=== PATIENT | female | born 1940 | race Caucasian/White ===

== ENCOUNTER 2016-11-29 22:19 | Inpatient (IN) | payer MEDICARE, OTHER ==
[~2016-11-29] VITALS: Ht 152.4 cm; Wt 71.8 kg
[~2016-11-29 22:19] MED LIST: ACET325T9 PO; DICL50TA2 PO; HYDR-2666 PO; LEFL20TA PO; LEVO150T5 PO; MELA3TAB PO; MULT1TAB52 PO; OMEP40CA5 PO; ONDA4TAB10 SL; SIMV40TA3 PO; TOCI400V IV; TRAM50TA PO; tylenol pm; vision formula
--- NOTE | 2016-11-29 23:54 | PHYS DOC ---
Past Medical History Past Medical History: Arthritis, High Cholesterol, Hypertension, Hypothyroid Additional Past Medical Histor: OSTEOPEROSIS, RA, CARPAL TUNNEL Past Surgical History: Knee Replacement, Other Additional Past Surgical Histo: BILA FOOT REPAIR, BILAT KNEE RPL, NECK FUSION, BILAT CARPAL TUNNEL RELEASE Alcohol Use: None Drug Use: None Adult General Chief Complaint Chief Complaint: ABDOMINAL PAIN HPI HPI Patient is a 76 year old female who presents with abdominal pain. Patient reports since eating breakfast she has been having a "cramping" lower abdominal pain that waxes and wanes. It is accompanied by nausea and vomiting. She does report having score small bowel movements this morning. No clear inciting or mitigating factors. She reports a similar episode one month ago that resolved spontaneously. She tried taking some Pepto-Bismol, but says this made it worse. No other acute complaints. Review of Systems Review of Systems Constitutional: Denies fever or chills Eyes: Denies change in visual acuity or eye pain HENT: Denies nasal congestion or sore throat Respiratory: Denies cough or shortness of breath Cardiovascular: Denies chest pain GI: Lower abdominal pain, nausea, vomiting. Denies bloody stools or diarrhea : Denies dysuria or hematuria Musculoskeletal: Denies back pain or joint pain Integument: Denies rash or skin lesions Neurologic: Denies headache, focal weakness or sensory changes Current Medications Current Medications Current Medications Medications (Trade) Dose Ordered Sig/Telly Start Time Stop Time Status Last Admin Dose Admin Info (Do NOT chart on this entry -- for MONITORING) 1 each PRN DAILY PRN 11/30/16 01:15 12/02/16 01:14 Iohexol (Omnipaque 300 Mg/ml) 60 ml 1X ONCE 11/30/16 01:00 11/30/16 01:01 DC 11/30/16 01:20 60 ML Morphine Sulfate 4 mg 1X ONCE 11/30/16 00:00 11/30/16 00:11 DC 11/30/16 00:15 4 MG Ondansetron HCl (Zofran) 4 mg 1X ONCE 11/30/16 00:00 11/30/16 00:11 DC 11/30/16 00:14 4 MG Sodium Chloride (Iv Sodium Chloride 0.9% 1000ml Bag) 1,000 ml @ 1,000 mls/hr Q1H 11/30/16 00:00 11/30/16 00:59 DC 11/30/16 00:00 1,000 MLS/HR Allergies Allergies Allergies Coded Allergies Type Severity Reaction Last Updated Verified oxaprozin Allergy Severe Anaphylaxis 02/26/15 No sulfamethazine Allergy Unknown 11/29/16 Yes prednisone Adverse Reaction Intermediate Anxiety 02/26/15 No Physical Exam Physical Exam Constitutional: Well developed, well nourished, no acute distress, non-toxic appearance HENT: Normocephalic, atraumatic, bilateral external ears normal Eyes: EOMI, conjunctiva normal, no discharge Neck: Normal range of motion, no stridor Cardiovascular: Heart rate normal, regular rhythm, murmur noted Lungs & Thorax: Bilateral breath sounds clear to auscultation Abdomen: Bowel sounds normal, soft, non-distended, generalized TTP without guarding or rebound, R inguinal hernia noted - firm, not able to reduce Skin: Warm, dry, no erythema, no rash Extremities: No obvious deformity, no edema Neurologic: Alert and oriented X 3, no gross deficits noted Current Patient Data Vital Signs Vital Signs Date Time Temp Pulse Resp B/P Pulse Ox O2 Delivery O2 Flow Rate FiO2 11/30/16 02:28 86 20 156/88 94 Room Air 11/29/16 23:33 98.2 98.2 Lab Values Laboratory Tests Test 11/29/16 22:42 11/29/16 22:50 Urine Collection Type Unknown Urine Color Yellow Urine Clarity Clear Urine pH 6.5 Urine Specific [place] 1.015 Urine Protein Negativemg/dL (NEG-TRACE) Urine Glucose (UA) Negativemg/dL (NEG) Urine Ketones (Stick) 40mg/dL (NEG) Urine Blood Negative (NEG) Urine Nitrite Negative (NEG) Urine Bilirubin Negative (NEG) Urine Urobilinogen Dipstick 0.2mg/dL (0.2 mg/dL) Urine Leukocyte Esterase Trace (NEG) Urine RBC Occ/HPF (0-2) Urine WBC 1-4/HPF (0-4) Urine Squamous Epithelial Cells Few/LPF Urine Bacteria Few/HPF (0-FEW) White Blood Count 5.2x10^3/uL (4.0-11.0) Red Blood Count 4.62x10^6/uL (3.50-5.40) Hemoglobin 14.5g/dL (12.0-15.5) Hematocrit 43.5% (36.0-47.0) Mean Corpuscular Volume 94fL (79-100) Mean Corpuscular Hemoglobin 31pg (25-35) Mean Corpuscular Hemoglobin Concent 33g/dL (31-37) Red Cell Distribution Width 13.4% (11.5-14.5) Platelet Count 173x10^3/uL (140-400) Neutrophils (%) (Auto) 76% (31-73) H Lymphocytes (%) (Auto) 13% (24-48) L Monocytes (%) (Auto) 6% (0-9) Eosinophils (%) (Auto) 5% (0-3) H Basophils (%) (Auto) 1% (0-3) Neutrophils # (Auto) 4.0x10^3uL (1.8-7.7) Lymphocytes # (Auto) 0.7x10^3/uL (1.0-4.8) L Monocytes # (Auto) 0.3x10^3/uL (0.0-1.1) Eosinophils # (Auto) 0.3x10^3/uL (0.0-0.7) Basophils # (Auto) 0.0x10^3/uL (0.0-0.2) Sodium Level 143mmol/L (136-145) Potassium Level 3.8mmol/L (3.5-5.1) Chloride Level 103mmol/L (98-107) Carbon Dioxide Level 28mmol/L (21-32) Anion Gap 12 (6-14) Blood Urea Nitrogen 21mg/dL (7-20) H Creatinine 1.0mg/dL (0.6-1.0) Estimated GFR (Cockcroft-Gault) 53.8 BUN/Creatinine Ratio 21 (6-20) H Glucose Level 113mg/dL (70-99) H Calcium Level 10.1mg/dL (8.5-10.1) Total Bilirubin 0.6mg/dL (0.2-1.0) Aspartate Amino Transferase (AST) 31U/L (15-37) Alanine Aminotransferase (ALT) 36U/L (14-59) Alkaline Phosphatase 49U/L (46-116) Total Protein 7.5g/dL (6.4-8.2) Albumin 4.2g/dL (3.4-5.0) Albumin/Globulin Ratio 1.3 (1.0-1.7) Lipase 79U/L (73-393) Laboratory Tests 11/29/16 22:50 Laboratory Tests 11/29/16 22:50 EKG EKG [] Radiology/Procedures Radiology/Procedures CT A/P: IMPRESSION 1. There is distal small bowel obstruction. Point of transition is in a small right inguinal hernia. 2. Large hiatus hernia. Contains a moderate amount of the stomach and segment of transverse colon. The stomach below the hemidiaphragm is distended. 3. Common bile duct and pancreatic duct are mildly dilated. No evidence of a distal obstructing process although this is not excluded. Course & Med Decision Making Course & Med Decision Making Pertinent Labs and Imaging studies reviewed. (See chart for details) Patient is 76-year-old female who presents with lower abdominal pain. Will obtain CT abdomen/pelvis, UA, labs to evaluate. IV fluids, pain medication, nausea medication ordered for relief of symptoms. Labs unremarkable. Imaging results as above. Discussed results with patient. I tried again to reduce her inguinal hernia, without success. I discussed with Dr. Valdivia; will place an NG tube in the ED, will not give antibiotics at this time. Discussed with Dr. Lewis, will admit under his care for further evaluation and treatment. Martin Disclaimer Dragon Disclaimer This electronic medical record was generated, in whole or in part, using a voice recognition dictation system. Departure Departure Impression: Primary Impression: Small bowel obstruction Disposition: ADMITTED INPATIENT Admitting Physician: Osmani Lewis Condition: STABLE Referrals: CHERYL LAMB MD (PCP) PARMINDER ROSE MD Nov 29, 2016 23:54
[2016-11-30] VITALS (13 sets, daily range): BP systolic 100–153; BP diastolic 64–87
[2016-11-30] MEDS ORDERED: IV NORMAL SALINE 1000ML BAG 1,000 ML IV SCH
[2016-11-30] MEDS ORDERED: ONDANSETRON PF 4 MG/2 ML VIAL. IV ONE
[2016-11-30 00:11] LABS: BASO % 1 % (0-3); EOS % 5 % (0-3); HEMATOCRIT 43.5 % (36.0-47.0); HEMOGLOBIN 14.5 g/dL (12.0-15.5); LYMPH # 0.7 x10^3/uL (1.0-4.8); LYMPH % 13 % (24-48); MEAN CORPUSCULAR HEMOGLOBIN 31 pg (25-35); MEAN CORPUSCULAR HGB CONC 33 g/dL (31-37); MEAN CORPUSCULAR VOLUME 94 fL (79-100); MONO % 6 % (0-9); NEUT % 76 % (31-73); PLATELET COUNT 173 x10^3/uL (140-400); RED BLOOD COUNT 4.62 x10^6/uL (3.50-5.40); RED CELL DISTRIBUTION WIDTH 13.4 % (11.5-14.5); WHITE BLOOD COUNT 5.2 x10^3/uL (4.0-11.0)
[2016-11-30 00:24] LABS: CALCIUM 10.1 mg/dL (8.5-10.1); GFR 53.8; POTASSIUM 3.8 mmol/L (3.5-5.1)
[2016-11-30 00:29] LABS: ALBUMIN 4.2 g/dL (3.4-5.0); ALBUMIN/GLOBULIN RATIO 1.3 (1.0-1.7); TOTAL BILIRUBIN 0.6 mg/dL (0.2-1.0); TOTAL PROTEIN 7.5 g/dL (6.4-8.2)
[2016-11-30 00:45] LABS: BILIRUBIN,URINE NEGATIVE (NEG); GLUCOSE,URINE NEGATIVE (NEG); NITRITE,URINE NEGATIVE (NEG); PH,URINE 6.5; PROTEIN,URINE NEGATIVE (NEG-TRACE); UROBILINOGEN,URINE 0.2 mg/dL (0.2 mg/dL)
[2016-11-30 00:56] LABS: BACTERIA,URINE FEW /HPF (0-FEW); RBC,URINE OCC /HPF (0-2); SQUAMOUS EPITHELIAL CELL,UR FEW /LPF
[2016-11-30] MEDS ORDERED: IOHEXOL 300 MG/ML 75 ML VIAL IV ONE (01:00)
[2016-11-30] MEDS ORDERED: CONTRAST GIVEN MC PRN (01:15)
--- NOTE | 2016-11-30 01:56 | RAD ---
PROCEDURE CT abdomen pelvis with contrast. HISTORY Lower abdominal pain tonight. Nausea and vomiting. TECHNIQUE Helical CT imaging of the abdomen and pelvis is performed after 60 cc Omnipaque 300 IV contrast. Oral contrast is not given. PQRS: One or more the following individualized dose reduction techniques were utilized for the study: 1. Automated exposure control. 2. Adjustment of the mA and/or kV according to patient size. 3. Use of iterative reconstruction technique. COMPARISON None. FINDINGS Atelectasis or scarring in the lower lobes, greater on the right. Coronary artery disease. Cardiac size upper limits of normal. There is a large hiatus hernia. The intra thoracic stomach is borderline thick walled. The hiatal hernia also contains a segment of transverse colon. The stomach below the hemidiaphragm is distended. Gallbladder not seen, may be surgically absent. Common bile duct is prominent but appears to taper distally. The pancreatic duct is dilated, for example coronal image 20. The liver, spleen, pancreas, adrenal glands, and kidneys are normal. Tortuous abdominal aorta. No aneurysm. There is distal small bowel obstruction. Point of transition is a right inguinal hernia. There is also a small amount of fluid in the hernia. Small bowel injuring the hernia is narrowed, coronal image 19. Small bowel proximal to the hernia is dilated and fluid-filled. No evidence of colitis. Urinary bladder is distended but otherwise normal. Uterus unremarkable. No significant pelvic free fluid. Bilateral L5 spondylolysis. There is grade 1 anterolisthesis of L5 on S1. There is reverse S shaped thoracolumbar scoliosis. There is degenerative spondylosis. Degenerative arthropathy of the hips, worse on the right. IMPRESSION 1. There is distal small bowel obstruction. Point of transition is in a small right inguinal hernia. 2. Large hiatus hernia. Contains a moderate amount of the stomach and segment of transverse colon. The stomach below the hemidiaphragm is distended. 3. Common bile duct and pancreatic duct are mildly dilated. No evidence of a distal obstructing process although this is not excluded. Electronically signed by: Du Frances MD (Nov 30, 2016 01:54:57)
[2016-11-30] MEDS ORDERED: ONDANSETRON PF 4 MG/2 ML VIAL. IV PRN ×3 (03:00→08:15)
[2016-11-30] MEDS ORDERED: MORPHINE SULFATE 4 MG/ML DISP.SYRIN. IV PRN (03:00)
[2016-11-30] MEDS ORDERED: MORPHINE SULFATE 4 MG/ML DISP.SYRIN. IV ONE ×2 (03:00)
[2016-11-30] MEDS ORDERED: DIPH25CA58 PO (05:12)
[2016-11-30] MEDS ORDERED: POLY17PO5 PO (05:12)
[2016-11-30] MEDS ORDERED: FENTANYL PF 100 MCG/2 ML VIAL. IV PRN (06:15)
[2016-11-30] MEDS ORDERED: HYDROMORPHONE 2 MG/ML VIAL. IV PRN (06:15)
[2016-11-30] MEDS ORDERED: LIDOCAINE 1% 1 ML SYRINGE. ID PRN (06:15)
[2016-11-30] MEDS ORDERED: MORPHINE SULFATE 2 MG/ML DISP.SYRIN. IV PRN ×2 (06:15→08:15)
[2016-11-30] MEDS ORDERED: PROCHLORPERAZINE 10 MG/2 ML VIAL. IV PRN (06:15)
[2016-11-30] MEDS ORDERED: IV RINGERS,LACTATED 1000ML 1,000 ML IV SCH (06:15)
[2016-11-30] MEDS ORDERED: BUPIVAC MPF-EPI 0.5%-1:200000 30 ML VIAL. ONE (06:20)
[2016-11-30] MEDS ORDERED: FENTANYL PF 100 MCG/2 ML VIAL. ONE ×2 (06:24→07:27)
[2016-11-30] MEDS ORDERED: MIDAZOLAM HCL 2 MG/2 ML VIAL. ONE (06:24)
[2016-11-30] MEDS ORDERED: DESFLURANE 61 TO 120 MINUTES IH ONE (06:24)
[2016-11-30] MEDS ORDERED: GLYCOPYRROLATE 1 MG/5 ML VIAL. ONE ×2 (06:25→07:49)
[2016-11-30] MEDS ORDERED: PROPOFOL 20 ML IV ONE (06:25)
[2016-11-30] MEDS ORDERED: NEOSTIGMINE METHYLSULFATE 5 MG/5 ML SYRINGE. ONE ×2 (06:25→07:49)
[2016-11-30] MEDS ORDERED: DEXAMETHASONE SOD PHOS 20 MG/5 ML VIAL. ONE (06:25)
[2016-11-30] MEDS ORDERED: ROCURONIUM 50 MG/5 ML VIAL. ONE (06:25)
[2016-11-30] MEDS ORDERED: SUCCINYLCHOLINE 200 MG/10 ML VIAL. ONE (06:25)
[2016-11-30] MEDS ORDERED: LIDOCAINE 2% 100 MG/5 ML DISP.SYRIN. ONE (06:26)
[2016-11-30] MEDS ORDERED: CEFAZOLIN 2GM PREMIX 50 ML IV ONE ×2 (06:41→07:00)
[2016-11-30] MEDS ORDERED: SCOPOLAMINE 1.5MG PATCH. TD PRN (06:45)
--- NOTE | 2016-11-30 06:54 | PDOC ---
SURGICAL PROGRESS NOTE Subjective 76 yo F with incarcerated RIH TO OR for repair R/B/A d/w pt Thanks for consult! [id number] Vital Signs Vital Signs Date Time Temp Pulse Resp B/P Pulse Ox O2 Delivery O2 Flow Rate FiO2 11/30/16 05:54 18 Nasal Cannula 2.0 11/30/16 05:43 98.7 83 140/87 98 98.7 I&O Intake and Output 11/30/16 06:59 Intake Total 1000 ml Output Total 400 ml Balance 600 ml Intake IV Total 1000 ml Output Gastric Drainage Total 400 ml Labs Laboratory Tests Test 11/29/16 22:42 11/29/16 22:50 11/30/16 02:57 Urine Collection Type Unknown Urine Color Yellow Urine Clarity Clear Urine pH 6.5 Urine Specific [place] 1.015 Urine Protein Negativemg/dL (NEG-TRACE) Urine Glucose (UA) Negativemg/dL (NEG) Urine Ketones (Stick) 40mg/dL (NEG) Urine Blood Negative (NEG) Urine Nitrite Negative (NEG) Urine Bilirubin Negative (NEG) Urine Urobilinogen Dipstick 0.2mg/dL (0.2 mg/dL) Urine Leukocyte Esterase Trace (NEG) Urine RBC Occ/HPF (0-2) Urine WBC 1-4/HPF (0-4) Urine Squamous Epithelial Cells Few/LPF Urine Bacteria Few/HPF (0-FEW) White Blood Count 5.2x10^3/uL (4.0-11.0) Red Blood Count 4.62x10^6/uL (3.50-5.40) Hemoglobin 14.5g/dL (12.0-15.5) Hematocrit 43.5% (36.0-47.0) Mean Corpuscular Volume 94fL (79-100) Mean Corpuscular Hemoglobin 31pg (25-35) Mean Corpuscular Hemoglobin Concent 33g/dL (31-37) Red Cell Distribution Width 13.4% (11.5-14.5) Platelet Count 173x10^3/uL (140-400) Neutrophils (%) (Auto) 76% (31-73) Lymphocytes (%) (Auto) 13% (24-48) Monocytes (%) (Auto) 6% (0-9) Eosinophils (%) (Auto) 5% (0-3) Basophils (%) (Auto) 1% (0-3) Neutrophils # (Auto) 4.0x10^3uL (1.8-7.7) Lymphocytes # (Auto) 0.7x10^3/uL (1.0-4.8) Monocytes # (Auto) 0.3x10^3/uL (0.0-1.1) Eosinophils # (Auto) 0.3x10^3/uL (0.0-0.7) Basophils # (Auto) 0.0x10^3/uL (0.0-0.2) Sodium Level 143mmol/L (136-145) Potassium Level 3.8mmol/L (3.5-5.1) Chloride Level 103mmol/L (98-107) Carbon Dioxide Level 28mmol/L (21-32) Anion Gap 12 (6-14) Blood Urea Nitrogen 21mg/dL (7-20) Creatinine 1.0mg/dL (0.6-1.0) Estimated GFR (Cockcroft-Gault) 53.8 BUN/Creatinine Ratio 21 (6-20) Glucose Level 113mg/dL (70-99) Calcium Level 10.1mg/dL (8.5-10.1) Total Bilirubin 0.6mg/dL (0.2-1.0) Aspartate Amino Transf (AST/SGOT) 31U/L (15-37) Alanine Aminotransferase (ALT/SGPT) 36U/L (14-59) Alkaline Phosphatase 49U/L (46-116) Total Protein 7.5g/dL (6.4-8.2) Albumin 4.2g/dL (3.4-5.0) Albumin/Globulin Ratio 1.3 (1.0-1.7) Lipase 79U/L (73-393) Lactic Acid Level 0.7mmol/L (0.4-2.0) Laboratory Tests Test 11/29/16 22:42 11/29/16 22:50 11/30/16 02:57 Urine Collection Type Unknown Urine Color Yellow Urine Clarity Clear Urine pH 6.5 Urine Specific [place] 1.015 Urine Protein Negativemg/dL (NEG-TRACE) Urine Glucose (UA) Negativemg/dL (NEG) Urine Ketones (Stick) 40mg/dL (NEG) Urine Blood Negative (NEG) Urine Nitrite Negative (NEG) Urine Bilirubin Negative (NEG) Urine Urobilinogen Dipstick 0.2mg/dL (0.2 mg/dL) Urine Leukocyte Esterase Trace (NEG) Urine RBC Occ/HPF (0-2) Urine WBC 1-4/HPF (0-4) Urine Squamous Epithelial Cells Few/LPF Urine Bacteria Few/HPF (0-FEW) White Blood Count 5.2x10^3/uL (4.0-11.0) Red Blood Count 4.62x10^6/uL (3.50-5.40) Hemoglobin 14.5g/dL (12.0-15.5) Hematocrit 43.5% (36.0-47.0) Mean Corpuscular Volume 94fL (79-100) Mean Corpuscular Hemoglobin 31pg (25-35) Mean Corpuscular Hemoglobin Concent 33g/dL (31-37) Red Cell Distribution Width 13.4% (11.5-14.5) Platelet Count 173x10^3/uL (140-400) Neutrophils (%) (Auto) 76% (31-73) Lymphocytes (%) (Auto) 13% (24-48) Monocytes (%) (Auto) 6% (0-9) Eosinophils (%) (Auto) 5% (0-3) Basophils (%) (Auto) 1% (0-3) Neutrophils # (Auto) 4.0x10^3uL (1.8-7.7) Lymphocytes # (Auto) 0.7x10^3/uL (1.0-4.8) Monocytes # (Auto) 0.3x10^3/uL (0.0-1.1) Eosinophils # (Auto) 0.3x10^3/uL (0.0-0.7) Basophils # (Auto) 0.0x10^3/uL (0.0-0.2) Sodium Level 143mmol/L (136-145) Potassium Level 3.8mmol/L (3.5-5.1) Chloride Level 103mmol/L (98-107) Carbon Dioxide Level 28mmol/L (21-32) Anion Gap 12 (6-14) Blood Urea Nitrogen 21mg/dL (7-20) Creatinine 1.0mg/dL (0.6-1.0) Estimated GFR (Cockcroft-Gault) 53.8 BUN/Creatinine Ratio 21 (6-20) Glucose Level 113mg/dL (70-99) Calcium Level 10.1mg/dL (8.5-10.1) Total Bilirubin 0.6mg/dL (0.2-1.0) Aspartate Amino Transf (AST/SGOT) 31U/L (15-37) Alanine Aminotransferase (ALT/SGPT) 36U/L (14-59) Alkaline Phosphatase 49U/L (46-116) Total Protein 7.5g/dL (6.4-8.2) Albumin 4.2g/dL (3.4-5.0) Albumin/Globulin Ratio 1.3 (1.0-1.7) Lipase 79U/L (73-393) Lactic Acid Level 0.7mmol/L (0.4-2.0) Problem List Problems Medical Problems: (1) Small bowel obstruction Status: Acute Problems: ARINA DEWEY MD Nov 30, 2016 06:54
[2016-11-30] MEDS ORDERED: CEFAZOLIN 2GM PREMIX 50 ML IV SCH (07:00)
--- NOTE | 2016-11-30 07:17 | RAD ---
ANA, 11/30/2016: History: Check NG tube placement An AP view of the upper abdomen demonstrates an NG tube extending into the gastric fundus. There is only a small amount of gas in the GI tract. No organomegaly is seen. There is a moderate thoracolumbar scoliosis with multilevel degenerative change. IMPRESSION: The NG tube extends into the gastric fundus.
[2016-11-30] MEDS: IV RINGERS,LACTATED 1000ML 1,000 ML IV SCH (08:05)
--- NOTE | 2016-11-30 08:14 | PDOC ---
BRIEF OPERATIVE NOTE Pre-Op Diagnosis Incarcerated RIH, SBO Post-Op Diagnosis same Procedure Performed RIH repair with mesh Surgeon Skip Anesthesia Type: General, Local Blood Loss 10 IV Fluid 800 Specimens Obtained hernia sac Findings small RIH, compromised SB but brightens and appears viable pending alleviating obstruction Complications none Additional Remarks [id number] ARINA DEWEY MD Nov 30, 2016 08:14
[2016-11-30] MEDS ORDERED: 0.9 % SODIUM CHLORIDE 10 ML DISP.SYRIN. IV PRN (08:15)
[2016-11-30] MEDS: FENTANYL PF 100 MCG/2 ML VIAL. IV PRN ×2 (08:41→09:01)
[2016-11-30] MEDS: SENNOSIDES/DOCUSATE 8.6/50MG TABLET. PO SCH ×2 (09:00→20:52)
--- NOTE | 2016-11-30 11:45 | PDOC1 ---
History and Physical Date of Admission Date of Admission DATE: 11/30/16 TIME: 11:44 Identification/Chief Complaint Chief Complaint abd pain Source Source: Caregiver, Chart review History of Present Illness History of Present Illness Ms. Sheridan is a 76 year old female admit with acute and severe abdominal pain. cramping pain but severe, 8/10,. accompanied by nausea and vomiting. I have seen the pt post op, repair of incarcerated hernina, and she was asleep and pain improved, had prior pain 1 mo ago, acute onset and stopped suddenly Past Medical History Cardiovascular: HTN, Hyperlipidemia Rheumatologic: Rheumatoid arthritis Endocrine: Hypothyroidism Family History Family History: No Significant Social History Smoke: No ALCOHOL: none Current Problem List Problem List Problems Medical Problems: (1) Incarcerated right inguinal hernia Status: Acute (2) Small bowel obstruction Status: Acute Problems: Current Medications Current Medications Current Medications Sodium Chloride (Iv Sodium Chloride 0.9% 1000ml Bag) 1,000 ml @ 1,000 mls/hr Q1H IV Last administered on 11/30/16 00:00; Start 11/30/16 at 00:00; Stop at 00:59; Status DC Ondansetron HCl (Zofran) 4 mg 1X ONCE IV Last administered on 11/30/16 00:14 ; Start 11/30/16 at 00:00; Stop 11/30/16 at 00:11; Status DC Morphine Sulfate 4 mg 1X ONCE IV Last administered on 11/30/16 00:15; Start 11/30/16 at 00:00; Stop 11/30/16 at 00:11; Status DC Iohexol (Omnipaque 300 Mg/ml) 60 ml 1X ONCE IV Last administered on 11/30/16 01:20; Start 11/30/16 at 01:00; Stop 11/30/16 at 01:01; Status DC Info (Do NOT chart on this entry -- for MONITORING) 1 each PRN DAILY PRN MC SEE COMMENTS; Start 11/30/16 at 01:15; Stop 12/02/16 at 01:14 Morphine Sulfate 4 mg 1X ONCE IV Last administered on 11/30/16 02:50; Start 11/30/16 at 03:00; Stop 11/30/16 at 03:10; Status DC Ondansetron HCl (Zofran) 4 mg PRN Q8HRS PRN IV NAUSEA/VOMITING; Start 11/30/16 at 03:00; Stop 12/01/16 at 02:59 Morphine Sulfate 4 mg PRN Q2HR PRN IV PAIN Last administered on 11/30/16 05:19 ; Start 11/30/16 at 03:00; Stop 12/01/16 at 02:59 Ondansetron HCl (Zofran) 4 mg PRN Q6HRS PRN IV Nausea; Start 11/30/16 at 06:15 ; Stop 12/01/16 at 06:14 Fentanyl Citrate (Fentanyl 2ml Vial) 25 mcg PRN Q5MIN PRN IV MILD PAIN; Start 11/30/16 at 06:15; Stop 12/01/16 at 06:14 Fentanyl Citrate (Fentanyl 2ml Vial) 50 mcg PRN Q5MIN PRN IV MODERATE PAIN Last administered on 11/30/16 09:01; Start 11/30/16 at 06:15; Stop 12/01/16 at 06:14 Morphine Sulfate 1 mg 1 mg PRN Q10MIN PRN IV SEVERE PAIN; Start 11/30/16 at 06: 15; Stop 12/01/16 at 06:14 Lactated Ringer's (Iv Lactated Ringers) 1,000 ml @ 0 mls/hr Q0M IV ; Start at 06:15; Stop 11/30/16 at 06:25; Status DC Lidocaine HCl 2 ml 1X PRN PRN ID IV START; Start 11/30/16 at 06:15; Stop at 06:14 Hydromorphone HCl (Dilaudid) 0.5 mg PRN Q10MIN PRN IV SEV PAIN,Second choice; Start 11/30/16 at 06:15; Stop 12/01/16 at 06:14 Prochlorperazine Edisylate (Compazine) 5 mg PACU PRN PRN IV NAUSEA; Start 11/30 at 06:15; Stop 12/01/16 at 06:14 Bupivacaine HCl/ Epinephrine Bitart (Sensorcain-Mpf Epi 0.5%-1:[id number]) 30 ml GigaCreteK -MED ONCE .ROUTE Last administered on 11/30/16 07:53; Start 11/30/16 at 06:20 ; Stop 11/30/16 at 06:21; Status DC Desflurane (Suprane) 60 ml STK-MED ONCE IH ; Start 11/30/16 at 06:24; Stop 11/30 at 06:25; Status DC Midazolam HCl (Versed) 2 mg STK-MED ONCE .ROUTE ; Start 11/30/16 at 06:24; Stop 11/30/16 at 06:25; Status DC Fentanyl Citrate (Fentanyl 2ml Vial) 100 mcg STK-MED ONCE .ROUTE ; Start at 06:24; Stop 11/30/16 at 06:25; Status DC Succinylcholine Chloride (Anectine) 200 mg STK-MED ONCE .ROUTE ; Start 11/30/16 at 06:25; Stop 11/30/16 at 06:26; Status DC Glycopyrrolate (Robinul) 1 mg STK-MED ONCE .ROUTE ; Start 11/30/16 at 06:25; Stop 11/30/16 at 06:26; Status DC Neostigmine Methylsulfate 5 mg STK-MED ONCE .ROUTE ; Start 11/30/16 at 06:25; Stop 11/30/16 at 06:26; Status DC Rocuronium [place] 50 mg 50 mg STK-MED ONCE .ROUTE ; Start 11/30/16 at 06:25; Stop 11/30/16 at 06:26; Status DC Propofol (Diprivan) 20 ml @ As Directed STK-MED ONCE IV ; Start 11/30/16 at 06: 25; Stop 11/30/16 at 06:26; Status DC Dexamethasone Sodium Phosphate (Decadron) 20 mg STK-MED ONCE .ROUTE ; Start at 06:25; Stop 11/30/16 at 06:26; Status DC Lidocaine HCl 100 mg STK-MED ONCE .ROUTE ; Start 11/30/16 at 06:26; Stop at 06:27; Status DC Scopolamine 1 patch 1 patch PRN 1X PRN TD DIZZINESS Last administered on t 07:20; Start 11/30/16 at 06:45; Stop 11/30/16 at 13:00 Cefazolin Sodium/ Dextrose 50 ml @ As Directed STK-MED ONCE IV ; Start 11/30/16 at 06:41; Stop 11/30/16 at 06:42; Status DC Cefazolin Sodium/ Dextrose 50 ml @ 100 mls/hr 1X PREOP IV Last administered on 11/30/16t 07:21; Start 11/30/16 at 07:00; Stop 12/01/16 at 06:59 Cefazolin Sodium/ Dextrose (Ancef 2gm Premix) 50 ml @ 100 mls/hr 1X ONCE IV ; Start 11/30/16 at 07:00; Stop 11/30/16 at 07:29; Status DC Fentanyl Citrate (Fentanyl 2ml Vial) 100 mcg STK-MED ONCE .ROUTE ; Start at 07:27; Stop 11/30/16 at 07:28; Status DC Glycopyrrolate (Robinul) 1 mg STK-MED ONCE .ROUTE ; Start 11/30/16 at 07:49; Stop 11/30/16 at 07:50; Status DC Neostigmine Methylsulfate 5 mg STK-MED ONCE .ROUTE ; Start 11/30/16 at 07:49; Stop 11/30/16 at 07:50; Status DC Sodium Chloride 3 ml 3 ml QSHIFT PRN IV AFTER MEDS AND BLOOD DRAWS; Start 11/30 at 08:15 Lactated Ringer's (Iv Lactated Ringers) 1,000 ml @ 100 mls/hr Q10H IV ; Start 11/30/16 at 08:05 Acetaminophen/ Hydrocodone Bitart (Lortab 5/325) 1 tab PRN Q4HRS PRN PO MILD PAIN; Start 11/30/16 at 08:15 Morphine Sulfate 1 mg PRN Q1HR PRN IV PAIN; Start 11/30/16 at 08:15 Senna/Docusate Sodium (Senna Plus) 1 tab BID PO ; Start 11/30/16 at 09:00 Ondansetron HCl (Zofran) 4 mg PRN Q6HRS PRN IV NAUESA, 1ST CHOICE; Start at 08:15 Active Scripts Active Zofran Odt (Ondansetron) 4 Mg Tab.rapdis 1 Tab SL Q8HRS Reported Miralax (Polyethylene Glycol 3350) 17 Gm Powd.pack 1 Pkt PO DAILY Benadryl (Diphenhydramine Hcl) 25 Mg Capsule 1 Cap PO QHS Multivitamins (Multivitamin) 1 Each Tablet Unknown Dose PO DAILY Melatonin 3 Mg Tablet 1 Tab PO QHS [tylenol pm] Unknown Dose Tramadol Hcl 50 Mg Tablet 1 Tab PO PRN Q6HRS Tylenol (Acetaminophen) 325 Mg Tablet 1 Tab PO PRN Q4HRS Hydrocodone-Apap 5-325 (Hydrocodone Bit/Acetaminophen) 1 Each Tablet 1 Tab PO PRN Q6HRS PRN Diclofenac Potassium 50 Mg Tablet 1 Tab PO BID Omeprazole 40 Mg Capsule.dr Unknown Dose PO DAILY Simvastatin 40 Mg Tablet Unknown Dose PO QHS Levothyroxine Sodium 150 Mcg Tablet Unknown Dose PO DAILY [vision formula] Unknown Dose Actemra (Tocilizumab) 400 Mg/20 Ml Vial Unknown Dose IV Arava (Leflunomide) 20 Mg Tablet Unknown Dose PO DAILY Allergies Allergies: Coded Allergies: oxaprozin (Unverified Allergy, Severe, Anaphylaxis, 11/30/16) sulfamethazine (Verified Allergy, Intermediate, 11/30/16) prednisone (Unverified Adverse Reaction, Intermediate, Anxiety, 11/30/16) ROS General: YES: Fatigue, No: Appetite, Chills, Malaise, Night Sweats, Other PSYCHOLOGICAL ROS: No: Anxiety, Behavioral Disorder, Concentration difficultie , Decreased libido, Depression, Disorientation, Hallucinations, Hostility, Irritablity, Memory difficulties, Mood Swings, Obsessive thoughts, Other, Physical abuse, Sexual abuse, Sleep disturbances, Suicidal ideation Eyes: No Blurry vision, No Decreased vision, No Double vision, No Dry eyes, No Excessive tearing, No Eye Pain, No Itchy Eyes, No Loss of vision, No Other, No Photophobia, No Scotomata, No Uses contacts, No Uses glasses HEENT: No: Epistaxis, Heacaches, Hearing change, Nasal congestion, Nasal discharge, Oral lesions, Other, Sinus pain, Sneezing, Snoring, Sore Throat, Tinnitus, Vertigo, Visual Changes, Vocal changes Gastrointestinal: Yes Abdominal Pain, Yes Nausea Genitourinary: No , No , No , No , No , No , No , No Discharge, No Dysuria, No Flank Pain, No Frequency, No Hematuria, No Incontinence, No Other, No Pain, No Retention, No Urgency Musculoskeletal: Yes Joint Pain, Yes Joint Stiffness, No Gait Disturbance, No Joint Swelling, No Muscle Pain, No Muscular Weakness , No Other, No Pain In:, No Swelling In: Neurological: No Behavorial Changes, No Bowel/Bladder ControlChng, No Confusion , No Dizziness, No Gait Disturbance, No Headaches, No Impaired Coord/balance, No Memory Loss, No Numbness/Tingling, No Other, No Seizures, No Speech Problems , No Tremors, No Visual Changes, No Weakness Skin: No Acne, No Dry Skin, No Eczema, No Hair Changes, No Lumps, No Mole Changes, No Mottling, No Nail Changes, No Other, No Pruritus, No Rash, No Skin Lesion Changes Physical Exam General: Cooperative, No acute distress HEENT: EOMI Lungs: Clear to auscultation, Normal air movement Heart: S1S2, RRR Abdomen: Other (reported tender) Extremities: No edema, Normal pulses Psych/Mental Status: Other (lethargic, post-op, sleepy) Vitals Vitals Vital Signs Date Time Temp Pulse Resp B/P Pulse Ox O2 Delivery O2 Flow Rate FiO2 11/30/16 11:00 62 109/68 96 Nasal Cannula 2.0 11/30/16 09:15 96.4 18 96.4 Labs Labs Laboratory Tests Test 11/29/16 22:42 11/29/16 22:50 11/30/16 02:57 Urine Collection Type Unknown Urine Color Yellow Urine Clarity Clear Urine pH 6.5 Urine Specific [place] 1.015 Urine Protein Negativemg/dL (NEG-TRACE) Urine Glucose (UA) Negativemg/dL (NEG) Urine Ketones (Stick) 40mg/dL (NEG) Urine Blood Negative (NEG) Urine Nitrite Negative (NEG) Urine Bilirubin Negative (NEG) Urine Urobilinogen Dipstick 0.2mg/dL (0.2 mg/dL) Urine Leukocyte Esterase Trace (NEG) Urine RBC Occ/HPF (0-2) Urine WBC 1-4/HPF (0-4) Urine Squamous Epithelial Cells Few/LPF Urine Bacteria Few/HPF (0-FEW) White Blood Count 5.2x10^3/uL (4.0-11.0) Red Blood Count 4.62x10^6/uL (3.50-5.40) Hemoglobin 14.5g/dL (12.0-15.5) Hematocrit 43.5% (36.0-47.0) Mean Corpuscular Volume 94fL (79-100) Mean Corpuscular Hemoglobin 31pg (25-35) Mean Corpuscular Hemoglobin Concent 33g/dL (31-37) Red Cell Distribution Width 13.4% (11.5-14.5) Platelet Count 173x10^3/uL (140-400) Neutrophils (%) (Auto) 76% (31-73) Lymphocytes (%) (Auto) 13% (24-48) Monocytes (%) (Auto) 6% (0-9) Eosinophils (%) (Auto) 5% (0-3) Basophils (%) (Auto) 1% (0-3) Neutrophils # (Auto) 4.0x10^3uL (1.8-7.7) Lymphocytes # (Auto) 0.7x10^3/uL (1.0-4.8) Monocytes # (Auto) 0.3x10^3/uL (0.0-1.1) Eosinophils # (Auto) 0.3x10^3/uL (0.0-0.7) Basophils # (Auto) 0.0x10^3/uL (0.0-0.2) Sodium Level 143mmol/L (136-145) Potassium Level 3.8mmol/L (3.5-5.1) Chloride Level 103mmol/L (98-107) Carbon Dioxide Level 28mmol/L (21-32) Anion Gap 12 (6-14) Blood Urea Nitrogen 21mg/dL (7-20) Creatinine 1.0mg/dL (0.6-1.0) Estimated GFR (Cockcroft-Gault) 53.8 BUN/Creatinine Ratio 21 (6-20) Glucose Level 113mg/dL (70-99) Calcium Level 10.1mg/dL (8.5-10.1) Total Bilirubin 0.6mg/dL (0.2-1.0) Aspartate Amino Transf (AST/SGOT) 31U/L (15-37) Alanine Aminotransferase (ALT/SGPT) 36U/L (14-59) Alkaline Phosphatase 49U/L (46-116) Total Protein 7.5g/dL (6.4-8.2) Albumin 4.2g/dL (3.4-5.0) Albumin/Globulin Ratio 1.3 (1.0-1.7) Lipase 79U/L (73-393) Lactic Acid Level 0.7mmol/L (0.4-2.0) Laboratory Tests Test 11/29/16 22:42 11/29/16 22:50 11/30/16 02:57 Urine Collection Type Unknown Urine Color Yellow Urine Clarity Clear Urine pH 6.5 Urine Specific [place] 1.015 Urine Protein Negativemg/dL (NEG-TRACE) Urine Glucose (UA) Negativemg/dL (NEG) Urine Ketones (Stick) 40mg/dL (NEG) Urine Blood Negative (NEG) Urine Nitrite Negative (NEG) Urine Bilirubin Negative (NEG) Urine Urobilinogen Dipstick 0.2mg/dL (0.2 mg/dL) Urine Leukocyte Esterase Trace (NEG) Urine RBC Occ/HPF (0-2) Urine WBC 1-4/HPF (0-4) Urine Squamous Epithelial Cells Few/LPF Urine Bacteria Few/HPF (0-FEW) White Blood Count 5.2x10^3/uL (4.0-11.0) Red Blood Count 4.62x10^6/uL (3.50-5.40) Hemoglobin 14.5g/dL (12.0-15.5) Hematocrit 43.5% (36.0-47.0) Mean Corpuscular Volume 94fL (79-100) Mean Corpuscular Hemoglobin 31pg (25-35) Mean Corpuscular Hemoglobin Concent 33g/dL (31-37) Red Cell Distribution Width 13.4% (11.5-14.5) Platelet Count 173x10^3/uL (140-400) Neutrophils (%) (Auto) 76% (31-73) Lymphocytes (%) (Auto) 13% (24-48) Monocytes (%) (Auto) 6% (0-9) Eosinophils (%) (Auto) 5% (0-3) Basophils (%) (Auto) 1% (0-3) Neutrophils # (Auto) 4.0x10^3uL (1.8-7.7) Lymphocytes # (Auto) 0.7x10^3/uL (1.0-4.8) Monocytes # (Auto) 0.3x10^3/uL (0.0-1.1) Eosinophils # (Auto) 0.3x10^3/uL (0.0-0.7) Basophils # (Auto) 0.0x10^3/uL (0.0-0.2) Sodium Level 143mmol/L (136-145) Potassium Level 3.8mmol/L (3.5-5.1) Chloride Level 103mmol/L (98-107) Carbon Dioxide Level 28mmol/L (21-32) Anion Gap 12 (6-14) Blood Urea Nitrogen 21mg/dL (7-20) Creatinine 1.0mg/dL (0.6-1.0) Estimated GFR (Cockcroft-Gault) 53.8 BUN/Creatinine Ratio 21 (6-20) Glucose Level 113mg/dL (70-99) Calcium Level 10.1mg/dL (8.5-10.1) Total Bilirubin 0.6mg/dL (0.2-1.0) Aspartate Amino Transf (AST/SGOT) 31U/L (15-37) Alanine Aminotransferase (ALT/SGPT) 36U/L (14-59) Alkaline Phosphatase 49U/L (46-116) Total Protein 7.5g/dL (6.4-8.2) Albumin 4.2g/dL (3.4-5.0) Albumin/Globulin Ratio 1.3 (1.0-1.7) Lipase 79U/L (73-393) Lactic Acid Level 0.7mmol/L (0.4-2.0) VTE Prophylaxis Ordered VTE Prophylaxis Devices: Yes VTE Pharmacological Prophylaxi: No Assessment/Plan Assessment/Plan Acute abdominal pain incarcerated hernia, taken to OR urgently SBO, ng tube IV fluid IV pain meds s/p RIH repair w. mesh, gen surg following rheum arthrisits, Arava hypothyoid, 150 d htn, lipids obese, BMI 30.9 GERD, PPI labs in AM, cont LR 100 admit CIARAN SCHAEFER MD Nov 30, 2016 11:44
[2016-11-30] MEDS ORDERED: ONDANSETRON ODT 4 MG TAB.RAPDIS PO PRN (12:00)
[2016-11-30] MEDS ORDERED: HYDROCODONE/APAP 5/325MG TABLET. PO PRN (12:00)
[2016-11-30] MEDS ORDERED: ACETAMINOPHEN 325 MG TABLET. PO PRN (12:00)
[2016-11-30] MEDS: LEFLUNOMIDE 10 MG TABLET. PO SCH (12:30)
[2016-11-30] MEDS: PANTOPRAZOLE 40 MG TABLET. PO SCH (13:06)
[2016-11-30] MEDS: LEVOTHYROXINE 150 MCG TABLET PO SCH (13:06)
[2016-11-30] MEDS: POLYETHYLENE GLYCOL 3350 17 GM PACKET. PO SCH (13:06)
--- NOTE | 2016-11-30 15:40 | OP ---
DATE OF SURGERY: 11/30/2016 REFERRING PHYSICIANS: Dr. Lewis, ____ and Dr. Cheryl Rosario. Thank you for the consult. PREOPERATIVE DIAGNOSIS: Incarcerated right inguinal hernia with small-bowel obstruction. POSTOPERATIVE DIAGNOSES: Incarcerated right inguinal hernia with small-bowel obstruction. PROCEDURE PERFORMED: Right inguinal hernia repair with mesh. SURGEON: Zan Valdivia MD. ESTIMATED BLOOD LOSS: 10 mL. FLUIDS: 800. COMPLICATIONS: None. FINDINGS: Incarcerated very distal loop of small bowel, purplish in nature in the hernia, but brightens and appears to be completely viable pending alleviation of the obstruction. INDICATIONS: This is a 76-year-old female who presents with complaints of abdominal pain, nausea and vomiting. Imaging was concerning for small bowel obstruction secondary to incarcerated right inguinal hernia with loop of small bowel. Subsequently, it was felt patient best be served by right inguinal hernia repair with possible mesh, possible bowel resection. The patient was informed of the risks, benefits, alternatives to procedure, risks including but not limited to bleeding, infection, damage to the surrounding structures, risk of anesthesia, risk of hernia recurrence, risk of bowel resection. Patient appears to understand and her insightful questions were answered and she agrees to proceed. DESCRIPTION OF PROCEDURE: After obtaining informed consent, the patient was taken to the operating room, induced under general endotracheal anesthetic. The patient was prepped and draped in usual fashion in the right groin area. A transverse incision was made in the right groin area above the hernia. The hernia was palpable, but not reducible. Subcutaneous tissue was divided using electrocautery. The superficial pudendal vein was divided using electrocautery. The external oblique was identified in the direction of its fibers. It was opened longitudinally with electrocautery. The hernia was readily identifiable. The hernia sac was sharply opened using Metzenbaum scissors. Within the hernia sac was identified a loop of small intestine which was purplish in nature with very small tight opening and was not able to be reduced. As such the fascial defect was enlarged laterally using electrocautery very carefully not to injure the bowel. This allowed the bowel to be eviscerated. With the alleviation of the obstruction the bowel brightened very well, appeared to be pink and viable throughout. No evidence of stricture, obstruction or perforation. The bowel was returned to the abdominal cavity. The hernia sac was excised using electrocautery and sent to pathology for evaluation. The peritoneal defect was reapproximated using continuous 3-0 Vicryl stitch. Given that there was no obvious infection, it was felt patient best be served by mesh repair given her multiple comorbidities and likelihood of developing another hernia. A mesh plug was then placed, which was large and tacked in place using multiple interrupted 0 Vicryl stitches. Mesh [place] was placed over this and tacked in place using multiple interrupted 0 Vicryl stitches. The external oblique was tacked over this using continuous 3-0 Vicryl stitch, 0.5% Marcaine with epinephrine was injected in the surrounding tissues. Subcutaneous tissues reapproximated with 3-0 Vicryl. Skin incisions were approximated with 4-0 Monocryl in subcuticular fashion. Sterile dressing was placed over all wounds. The patient tolerated procedure well and was discharged to recovery room in stable condition. All counts correct. There were no immediate complications. CC: ____ ZAN VALDIVIA MD DR: SUJIT/luana JOB#: [id number] / [id number] CHERYL Ramos MD, SRINIVASA MD WILSON, KYLE MD
[2016-11-30] MEDS: DICLOFENAC SODIUM 25 MG TABLET.DR PO SCH (20:52)
[2016-11-30] MEDS: SIMVASTATIN 40 MG TABLET. PO SCH (20:52)
[2016-11-30] MEDS ORDERED: NON FORMULARY ITEM (Melatonin 1 TAB) PO SCH (21:00)
[2016-12-01] MEDS: HYDROCODONE/APAP 5/325MG TABLET. PO PRN ×4 (01:01→23:13)
[2016-12-01 02:40] VITALS: BP 111/71
[2016-12-01] MEDS: IV RINGERS,LACTATED 1000ML 1,000 ML IV SCH ×2 (04:05→16:32)
[2016-12-01 05:50] LABS: CALCIUM 8.8 mg/dL (8.5-10.1); CREATININE 0.8 mg/dL (0.6-1.0); GFR 69.6; POTASSIUM 3.4 mmol/L (3.5-5.1)
[2016-12-01 06:16] LABS: BASO % 0 % (0-3); EOS % 4 % (0-3); HEMATOCRIT 32.8 % (36.0-47.0); HEMOGLOBIN 11.2 g/dL (12.0-15.5); LYMPH # 1.2 x10^3/uL (1.0-4.8); LYMPH % 37 % (24-48); MEAN CORPUSCULAR HEMOGLOBIN 32 pg (25-35); MEAN CORPUSCULAR HGB CONC 34 g/dL (31-37); MEAN CORPUSCULAR VOLUME 93 fL (79-100); MONO % 17 % (0-9); NEUT % 42 % (31-73); PLATELET COUNT 134 x10^3/uL (140-400); RED BLOOD COUNT 3.52 x10^6/uL (3.50-5.40); RED CELL DISTRIBUTION WIDTH 13.3 % (11.5-14.5); WHITE BLOOD COUNT 3.3 x10^3/uL (4.0-11.0)
[2016-12-01 07:00] VITALS: BP 138/83
[2016-12-01] MEDS: LEVOTHYROXINE 150 MCG TABLET PO SCH (07:23)
--- NOTE | 2016-12-01 08:23 | PDOC ---
SURGICAL PROGRESS NOTE Subjective Pt without c/o, malcolm clears, no N/V with NGT clamped, KUB colonic air Vital Signs Vital Signs Date Time Temp Pulse Resp B/P Pulse Ox O2 Delivery O2 Flow Rate FiO2 12/01/16 07:00 99.5 72 18 138/83 94 Nasal Cannula 2.0 99.5 I&O Intake and Output 12/01/16 07:00 Intake Total 2350 ml Output Total 660 ml Balance 1690 ml Intake Oral 1100 ml IV Total 1250 ml Output Urine Total 650 ml Estimated Blood Loss 10 ml # Voids 3 General: Alert, Oriented X3, Cooperative, No acute distress Abdomen: Soft, No tenderness, Other (dressing c/d/i, some shadowing last night) Labs Laboratory Tests Test 11/29/16 22:42 11/29/16 22:50 11/30/16 02:57 12/01/16 04:20 Urine Collection Type Unknown Urine Color Yellow Urine Clarity Clear Urine pH 6.5 Urine Specific [place] 1.015 Urine Protein Negativemg/dL (NEG-TRACE) Urine Glucose (UA) Negativemg/dL (NEG) Urine Ketones (Stick) 40mg/dL (NEG) Urine Blood Negative (NEG) Urine Nitrite Negative (NEG) Urine Bilirubin Negative (NEG) Urine Urobilinogen Dipstick 0.2mg/dL (0.2 mg/dL) Urine Leukocyte Esterase Trace (NEG) Urine RBC Occ/HPF (0-2) Urine WBC 1-4/HPF (0-4) Urine Squamous Epithelial Cells Few/LPF Urine Bacteria Few/HPF (0-FEW) White Blood Count 5.2x10^3/uL (4.0-11.0) 3.3x10^3/uL (4.0-11.0) Red Blood Count 4.62x10^6/uL (3.50-5.40) 3.52x10^6/uL (3.50-5.40) Hemoglobin 14.5g/dL (12.0-15.5) 11.2g/dL (12.0-15.5) Hematocrit 43.5% (36.0-47.0) 32.8% (36.0-47.0) Mean Corpuscular Volume 94fL (79-100) 93fL (79-100) Mean Corpuscular Hemoglobin 31pg (25-35) 32pg (25-35) Mean Corpuscular Hemoglobin Concent 33g/dL (31-37) 34g/dL (31-37) Red Cell Distribution Width 13.4% (11.5-14.5) 13.3% (11.5-14.5) Platelet Count 173x10^3/uL (140-400) 134x10^3/uL (140-400) Neutrophils (%) (Auto) 76% (31-73) 42% (31-73) Lymphocytes (%) (Auto) 13% (24-48) 37% (24-48) Monocytes (%) (Auto) 6% (0-9) 17% (0-9) Eosinophils (%) (Auto) 5% (0-3) 4% (0-3) Basophils (%) (Auto) 1% (0-3) 0% (0-3) Neutrophils # (Auto) 4.0x10^3uL (1.8-7.7) 1.4x10^3uL (1.8-7.7) Lymphocytes # (Auto) 0.7x10^3/uL (1.0-4.8) 1.2x10^3/uL (1.0-4.8) Monocytes # (Auto) 0.3x10^3/uL (0.0-1.1) 0.6x10^3/uL (0.0-1.1) Eosinophils # (Auto) 0.3x10^3/uL (0.0-0.7) 0.1x10^3/uL (0.0-0.7) Basophils # (Auto) 0.0x10^3/uL (0.0-0.2) 0.0x10^3/uL (0.0-0.2) Sodium Level 143mmol/L (136-145) 140mmol/L (136-145) Potassium Level 3.8mmol/L (3.5-5.1) 3.4mmol/L (3.5-5.1) Chloride Level 103mmol/L (98-107) 106mmol/L (98-107) Carbon Dioxide Level 28mmol/L (21-32) 28mmol/L (21-32) Anion Gap 12 (6-14) 6 (6-14) Blood Urea Nitrogen 21mg/dL (7-20) 16mg/dL (7-20) Creatinine 1.0mg/dL (0.6-1.0) 0.8mg/dL (0.6-1.0) Estimated GFR (Cockcroft-Gault) 53.8 69.6 BUN/Creatinine Ratio 21 (6-20) Glucose Level 113mg/dL (70-99) 88mg/dL (70-99) Calcium Level 10.1mg/dL (8.5-10.1) 8.8mg/dL (8.5-10.1) Total Bilirubin 0.6mg/dL (0.2-1.0) Aspartate Amino Transf (AST/SGOT) 31U/L (15-37) Alanine Aminotransferase (ALT/SGPT) 36U/L (14-59) Alkaline Phosphatase 49U/L (46-116) Total Protein 7.5g/dL (6.4-8.2) Albumin 4.2g/dL (3.4-5.0) Albumin/Globulin Ratio 1.3 (1.0-1.7) Lipase 79U/L (73-393) Lactic Acid Level 0.7mmol/L (0.4-2.0) Laboratory Tests Test 12/01/16 04:20 White Blood Count 3.3x10^3/uL (4.0-11.0) Red Blood Count 3.52x10^6/uL (3.50-5.40) Hemoglobin 11.2g/dL (12.0-15.5) Hematocrit 32.8% (36.0-47.0) Mean Corpuscular Volume 93fL (79-100) Mean Corpuscular Hemoglobin 32pg (25-35) Mean Corpuscular Hemoglobin Concent 34g/dL (31-37) Red Cell Distribution Width 13.3% (11.5-14.5) Platelet Count 134x10^3/uL (140-400) Neutrophils (%) (Auto) 42% (31-73) Lymphocytes (%) (Auto) 37% (24-48) Monocytes (%) (Auto) 17% (0-9) Eosinophils (%) (Auto) 4% (0-3) Basophils (%) (Auto) 0% (0-3) Neutrophils # (Auto) 1.4x10^3uL (1.8-7.7) Lymphocytes # (Auto) 1.2x10^3/uL (1.0-4.8) Monocytes # (Auto) 0.6x10^3/uL (0.0-1.1) Eosinophils # (Auto) 0.1x10^3/uL (0.0-0.7) Basophils # (Auto) 0.0x10^3/uL (0.0-0.2) Sodium Level 140mmol/L (136-145) Potassium Level 3.4mmol/L (3.5-5.1) Chloride Level 106mmol/L (98-107) Carbon Dioxide Level 28mmol/L (21-32) Anion Gap 6 (6-14) Blood Urea Nitrogen 16mg/dL (7-20) Creatinine 0.8mg/dL (0.6-1.0) Estimated GFR (Cockcroft-Gault) 69.6 Glucose Level 88mg/dL (70-99) Calcium Level 8.8mg/dL (8.5-10.1) Problem List Problems Medical Problems: (1) Incarcerated right inguinal hernia Status: Acute (2) Small bowel obstruction Status: Acute Assessment/Plan s/p hernia repair d/c NGT ADAT Problems: ARINA DEWEY MD Dec 01, 2016 08:23
[2016-12-01] MEDS: DICLOFENAC SODIUM 25 MG TABLET.DR PO SCH ×2 (08:54→20:42)
[2016-12-01] MEDS: SENNOSIDES/DOCUSATE 8.6/50MG TABLET. PO SCH ×2 (08:54→20:42)
[2016-12-01] MEDS: LEFLUNOMIDE 10 MG TABLET. PO SCH (08:54)
[2016-12-01] MEDS: PANTOPRAZOLE 40 MG TABLET. PO SCH (08:54)
[2016-12-01] MEDS: POLYETHYLENE GLYCOL 3350 17 GM PACKET. PO SCH (08:55)
--- NOTE | 2016-12-01 09:15 | RAD ---
INDICATION: small bowel obstruction COMPARISON: CT from one day prior IMPRESSION: 2 views of chest and abdomen obtained. Enlarged cardiomediastinal silhouette is partially visualized chest base. A portion of this appearance is likely secondary the patient's known hiatal hernia. There is an enteric tube seen within left upper quadrant the abdomen. Could be within the patient's hiatal hernia sac. Linear opacity left lower lung could be atelectasis. Severe degenerative changes of spine with scoliotic curvature. Air-filled distended loops of bowel are again seen within the abdomen and could be from the patient's known bowel obstruction although a portion could also be from ileus as well given that a portion of the large bowel appears air-filled and prominent.
--- NOTE | 2016-12-01 10:31 | CONS ---
DATE OF CONSULTATION: 11/30/2016 REFERRING PHYSICIANS: Dr. Lewis, Dr. Fredi Bradley, Dr. Cheryl Rosario. Thank you for the consult. CHIEF COMPLAINT: Nausea and vomiting, right groin bulge. DIAGNOSIS: Incarcerated right inguinal hernia. PLANNED PROCEDURE: Right inguinal hernia repair, possibly with mesh, possible bowel resection. HISTORY OF PRESENT ILLNESS: This is a very pleasant 76-year-old female who reports having an episode of crampy abdominal pain with some associated nausea and vomiting beginning 2 days ago, gradually worsened to the point where she presented to the Emergency Room for evaluation. She was diagnosed with small bowel obstruction. NG tube was placed and she was admitted for IV fluid resuscitation, seen in the preoperative area. She reports feeling much better since admission with the NG tube placement, does still have the pain, especially in the right groin, is tolerable in spite of pain medicine. She does report a dry mouth. She denies fevers or chills. She reports a history of hiatal hernia which occurred for falling on some linens approximately 6 years ago. She notes intermittently feeling a kink that resolves with stretching. ALLERGIES: SHE HAS AN ALLERGY TO OXAPROZIN, SULFAMETHAZINE. MEDICATIONS: Including Tylenol, diclofenac, Benadryl, hydrocodone, Arava, levothyroxine, melatonin, multivitamin, omeprazole, Zofran, MiraLax, simvastatin, tramadol. PAST MEDICAL HISTORY: Rheumatoid arthritis, high cholesterol, hypertension, hypothyroidism, osteoporosis. PAST SURGICAL HISTORY: Carpal tunnel repair of bilateral wrists, knee replacements, multiple neck fusions. SOCIAL HISTORY: No tobacco, no significant alcohol use. FAMILY HISTORY: Positive for diabetes. REVIEW OF SYSTEMS: All systems reviewed and negative except for HPI. PHYSICAL EXAMINATION: GENERAL: Well-developed, mildly obese female in no obvious distress. She has an NG tube in place with clear aspirate. VITAL SIGNS: She is afebrile. Vital signs within normal limits. HEENT: Normocephalic, anicteric sclerae. Extraocular motions intact. Oropharynx clear. NECK: Supple. CHEST: Bilateral chest excursion. ABDOMEN: Soft, somewhat distended, nontender to palpation. She has a palpable mass in the right groin consistent with right inguinal hernia, does not appear to be reducible. She reports some mild tenderness to palpation with this. EXTREMITIES: She has significant evidence of rheumatoid arthritis, especially in her hands and her extremities. LABORATORY DATA: White blood cell count is 5.2. Chemistry is consistent with mild dehydration with BUN of 21 and creatinine 1.0. UA is unremarkable. CT scan of her abdomen and pelvis demonstrates atelectasis, large hiatal hernia with intrathoracic stomach, borderline thick-walled, with some transverse colon, gallbladder was not visualized, distal small bowel obstruction with point transition in the right inguinal hernia, small amount of fluid in the hernia, degenerative disk disease. IMPRESSION AND RECOMMENDATIONS: A 76-year-old female with small bowel obstruction secondary to incarcerated right inguinal hernia. We will plan on right inguinal hernia repair possibly with mesh, possible bowel resection today. The patient was informed of the risks, benefits and alternatives to procedure, risks including but not limited to bleeding, infection, damage to surrounding structures, risk of anesthesia, risk of hernia recurrence and possible bowel resection. The patient appears to understand, her insightful questions were answered and she agrees to proceed. The large hiatal hernia is discussed with her. She does not wish surgical intervention at this time. She recently undergone some immune therapy for rheumatoid arthritis and would be at high risk for large procedure. In addition, she reports that this is this not significantly symptomatic to her, but she may benefit from additional workup pending recovery from this surgery. In addition, her bile duct and pancreatic ducts are noted and she may benefit from followup pending recovery from the surgery. Thank you for allowing my participation in the care of this pleasant patient. ARINA DEWEY MD DR: SUJIT/luana JOB#: [id number] / [id number] CHERYL Ramos MD, SRINIVASA MD WILSON, KYLE MD MTDD
[2016-12-01 11:08] VITALS: BP 116/77
--- NOTE | 2016-12-01 12:18 | PDOC ---
PROGRESS NOTES Chief Complaint Chief Complaint incarcerated hernia s/p emergent sx (11/30) POD # 1 rheum arthritis on Arava hypothyoidism on synthroid htn, Dyslipidemia obese, BMI 30.9 History of Present Illness History of Present Illness Doing well post op in terms of pain level, mobility and tolerating clears Eager to go home soon Dw RN and pt GS notes reviewed PLAN: Possible GI soft tonight Cont ambulation and iS Post op site inspected, minimal bleeding Vitals Vitals Vital Signs Date Time Temp Pulse Resp B/P Pulse Ox O2 Delivery O2 Flow Rate FiO2 12/01/16 11:08 98.1 65 18 116/77 97 Nasal Cannula 2.0 98.1 Physical Exam General: Alert, Oriented X3, Cooperative, No acute distress Heart: Regular rate, Normal S1, Normal S2 Lungs: Clear Abdomen: Soft, No tenderness, Other (dressing c/d/i, some shadowing last night) Extremities: No clubbing, No cyanosis, No edema, Normal pulses Skin: No rashes, No breakdown Labs LABS Laboratory Tests Test 12/01/16 04:20 White Blood Count 3.3x10^3/uL (4.0-11.0) Red Blood Count 3.52x10^6/uL (3.50-5.40) Hemoglobin 11.2g/dL (12.0-15.5) Hematocrit 32.8% (36.0-47.0) Mean Corpuscular Volume 93fL (79-100) Mean Corpuscular Hemoglobin 32pg (25-35) Mean Corpuscular Hemoglobin Concent 34g/dL (31-37) Red Cell Distribution Width 13.3% (11.5-14.5) Platelet Count 134x10^3/uL (140-400) Neutrophils (%) (Auto) 42% (31-73) Lymphocytes (%) (Auto) 37% (24-48) Monocytes (%) (Auto) 17% (0-9) Eosinophils (%) (Auto) 4% (0-3) Basophils (%) (Auto) 0% (0-3) Neutrophils # (Auto) 1.4x10^3uL (1.8-7.7) Lymphocytes # (Auto) 1.2x10^3/uL (1.0-4.8) Monocytes # (Auto) 0.6x10^3/uL (0.0-1.1) Eosinophils # (Auto) 0.1x10^3/uL (0.0-0.7) Basophils # (Auto) 0.0x10^3/uL (0.0-0.2) Sodium Level 140mmol/L (136-145) Potassium Level 3.4mmol/L (3.5-5.1) Chloride Level 106mmol/L (98-107) Carbon Dioxide Level 28mmol/L (21-32) Anion Gap 6 (6-14) Blood Urea Nitrogen 16mg/dL (7-20) Creatinine 0.8mg/dL (0.6-1.0) Estimated GFR (Cockcroft-Gault) 69.6 Glucose Level 88mg/dL (70-99) Calcium Level 8.8mg/dL (8.5-10.1) Review of Systems Review of Systems no emesis, constipation, cp, soa Assessment and Plan Assessmemt and Plan Problems Medical Problems: (1) Incarcerated right inguinal hernia Status: Acute (2) Small bowel obstruction Status: Acute Problems: Comment Review of Relevant I have reviewed the following items mally (where applicable) has been applied. Labs Laboratory Tests Test 11/29/16 22:42 11/29/16 22:50 11/30/16 02:57 12/01/16 04:20 Urine Collection Type Unknown Urine Color Yellow Urine Clarity Clear Urine pH 6.5 Urine Specific [place] 1.015 Urine Protein Negativemg/dL (NEG-TRACE) Urine Glucose (UA) Negativemg/dL (NEG) Urine Ketones (Stick) 40mg/dL (NEG) Urine Blood Negative (NEG) Urine Nitrite Negative (NEG) Urine Bilirubin Negative (NEG) Urine Urobilinogen Dipstick 0.2mg/dL (0.2 mg/dL) Urine Leukocyte Esterase Trace (NEG) Urine RBC Occ/HPF (0-2) Urine WBC 1-4/HPF (0-4) Urine Squamous Epithelial Cells Few/LPF Urine Bacteria Few/HPF (0-FEW) White Blood Count 5.2x10^3/uL (4.0-11.0) 3.3x10^3/uL (4.0-11.0) Red Blood Count 4.62x10^6/uL (3.50-5.40) 3.52x10^6/uL (3.50-5.40) Hemoglobin 14.5g/dL (12.0-15.5) 11.2g/dL (12.0-15.5) Hematocrit 43.5% (36.0-47.0) 32.8% (36.0-47.0) Mean Corpuscular Volume 94fL (79-100) 93fL (79-100) Mean Corpuscular Hemoglobin 31pg (25-35) 32pg (25-35) Mean Corpuscular Hemoglobin Concent 33g/dL (31-37) 34g/dL (31-37) Red Cell Distribution Width 13.4% (11.5-14.5) 13.3% (11.5-14.5) Platelet Count 173x10^3/uL (140-400) 134x10^3/uL (140-400) Neutrophils (%) (Auto) 76% (31-73) 42% (31-73) Lymphocytes (%) (Auto) 13% (24-48) 37% (24-48) Monocytes (%) (Auto) 6% (0-9) 17% (0-9) Eosinophils (%) (Auto) 5% (0-3) 4% (0-3) Basophils (%) (Auto) 1% (0-3) 0% (0-3) Neutrophils # (Auto) 4.0x10^3uL (1.8-7.7) 1.4x10^3uL (1.8-7.7) Lymphocytes # (Auto) 0.7x10^3/uL (1.0-4.8) 1.2x10^3/uL (1.0-4.8) Monocytes # (Auto) 0.3x10^3/uL (0.0-1.1) 0.6x10^3/uL (0.0-1.1) Eosinophils # (Auto) 0.3x10^3/uL (0.0-0.7) 0.1x10^3/uL (0.0-0.7) Basophils # (Auto) 0.0x10^3/uL (0.0-0.2) 0.0x10^3/uL (0.0-0.2) Sodium Level 143mmol/L (136-145) 140mmol/L (136-145) Potassium Level 3.8mmol/L (3.5-5.1) 3.4mmol/L (3.5-5.1) Chloride Level 103mmol/L (98-107) 106mmol/L (98-107) Carbon Dioxide Level 28mmol/L (21-32) 28mmol/L (21-32) Anion Gap 12 (6-14) 6 (6-14) Blood Urea Nitrogen 21mg/dL (7-20) 16mg/dL (7-20) Creatinine 1.0mg/dL (0.6-1.0) 0.8mg/dL (0.6-1.0) Estimated GFR (Cockcroft-Gault) 53.8 69.6 BUN/Creatinine Ratio 21 (6-20) Glucose Level 113mg/dL (70-99) 88mg/dL (70-99) Calcium Level 10.1mg/dL (8.5-10.1) 8.8mg/dL (8.5-10.1) Total Bilirubin 0.6mg/dL (0.2-1.0) Aspartate Amino Transf (AST/SGOT) 31U/L (15-37) Alanine Aminotransferase (ALT/SGPT) 36U/L (14-59) Alkaline Phosphatase 49U/L (46-116) Total Protein 7.5g/dL (6.4-8.2) Albumin 4.2g/dL (3.4-5.0) Albumin/Globulin Ratio 1.3 (1.0-1.7) Lipase 79U/L (73-393) Lactic Acid Level 0.7mmol/L (0.4-2.0) Laboratory Tests Test 12/01/16 04:20 White Blood Count 3.3x10^3/uL (4.0-11.0) Red Blood Count 3.52x10^6/uL (3.50-5.40) Hemoglobin 11.2g/dL (12.0-15.5) Hematocrit 32.8% (36.0-47.0) Mean Corpuscular Volume 93fL (79-100) Mean Corpuscular Hemoglobin 32pg (25-35) Mean Corpuscular Hemoglobin Concent 34g/dL (31-37) Red Cell Distribution Width 13.3% (11.5-14.5) Platelet Count 134x10^3/uL (140-400) Neutrophils (%) (Auto) 42% (31-73) Lymphocytes (%) (Auto) 37% (24-48) Monocytes (%) (Auto) 17% (0-9) Eosinophils (%) (Auto) 4% (0-3) Basophils (%) (Auto) 0% (0-3) Neutrophils # (Auto) 1.4x10^3uL (1.8-7.7) Lymphocytes # (Auto) 1.2x10^3/uL (1.0-4.8) Monocytes # (Auto) 0.6x10^3/uL (0.0-1.1) Eosinophils # (Auto) 0.1x10^3/uL (0.0-0.7) Basophils # (Auto) 0.0x10^3/uL (0.0-0.2) Sodium Level 140mmol/L (136-145) Potassium Level 3.4mmol/L (3.5-5.1) Chloride Level 106mmol/L (98-107) Carbon Dioxide Level 28mmol/L (21-32) Anion Gap 6 (6-14) Blood Urea Nitrogen 16mg/dL (7-20) Creatinine 0.8mg/dL (0.6-1.0) Estimated GFR (Cockcroft-Gault) 69.6 Glucose Level 88mg/dL (70-99) Calcium Level 8.8mg/dL (8.5-10.1) Medications Current Medications Sodium Chloride (Iv Sodium Chloride 0.9% 1000ml Bag) 1,000 ml @ 1,000 mls/hr Q1H IV Last administered on 11/30/16 00:00; Start 11/30/16 at 00:00; Stop at 00:59; Status DC Ondansetron HCl (Zofran) 4 mg 1X ONCE IV Last administered on 11/30/16 00:14 ; Start 11/30/16 at 00:00; Stop 11/30/16 at 00:11; Status DC Morphine Sulfate 4 mg 1X ONCE IV Last administered on 11/30/16 00:15; Start 11/30/16 at 00:00; Stop 11/30/16 at 00:11; Status DC Iohexol (Omnipaque 300 Mg/ml) 60 ml 1X ONCE IV Last administered on 11/30/16 01:20; Start 11/30/16 at 01:00; Stop 11/30/16 at 01:01; Status DC Info (Do NOT chart on this entry -- for MONITORING) 1 each PRN DAILY PRN MC SEE COMMENTS; Start 11/30/16 at 01:15; Stop 12/02/16 at 01:14 Morphine Sulfate 4 mg 1X ONCE IV Last administered on 11/30/16 02:50; Start 11/30/16 at 03:00; Stop 11/30/16 at 03:10; Status DC Ondansetron HCl (Zofran) 4 mg PRN Q8HRS PRN IV NAUSEA/VOMITING; Start 11/30/16 at 03:00; Stop 12/01/16 at 02:59; Status DC Morphine Sulfate 4 mg PRN Q2HR PRN IV PAIN Last administered on 11/30/16 05:19 ; Start 11/30/16 at 03:00; Stop 12/01/16 at 02:59; Status DC Ondansetron HCl (Zofran) 4 mg PRN Q6HRS PRN IV Nausea; Start 11/30/16 at 06:15 ; Stop 12/01/16 at 06:14; Status DC Fentanyl Citrate (Fentanyl 2ml Vial) 25 mcg PRN Q5MIN PRN IV MILD PAIN; Start 11/30/16 at 06:15; Stop 12/01/16 at 06:14; Status DC Fentanyl Citrate (Fentanyl 2ml Vial) 50 mcg PRN Q5MIN PRN IV MODERATE PAIN Last administered on 11/30/16 09:01; Start 11/30/16 at 06:15; Stop 12/01/16 at 06:14; Status DC Morphine Sulfate 1 mg 1 mg PRN Q10MIN PRN IV SEVERE PAIN Last administered on 13:07; Start 11/30/16 at 06:15; Stop 12/01/16 at 06:14; Status DC Lactated Ringer's (Iv Lactated Ringers) 1,000 ml @ 0 mls/hr Q0M IV ; Start at 06:15; Stop 11/30/16 at 06:25; Status DC Lidocaine HCl 2 ml 1X PRN PRN ID IV START; Start 11/30/16 at 06:15; Stop at 06:14; Status DC Hydromorphone HCl (Dilaudid) 0.5 mg PRN Q10MIN PRN IV SEV PAIN,Second choice; Start 11/30/16 at 06:15; Stop 12/01/16 at 06:14; Status DC Prochlorperazine Edisylate (Compazine) 5 mg PACU PRN PRN IV NAUSEA; Start 11/30 at 06:15; Stop 12/01/16 at 06:14; Status DC Bupivacaine HCl/ Epinephrine Bitart (Sensorcain-Mpf Epi 0.5%-1:[id number]) 30 ml STK -MED ONCE .ROUTE Last administered on 11/30/16t 07:53; Start 11/30/16 at 06:20 ; Stop 11/30/16 at 06:21; Status DC Desflurane (Suprane) 60 ml STK-MED ONCE IH ; Start 11/30/16 at 06:24; Stop 11/30 at 06:25; Status DC Midazolam HCl (Versed) 2 mg STK-MED ONCE .ROUTE ; Start 11/30/16 at 06:24; Stop 11/30/16 at 06:25; Status DC Fentanyl Citrate (Fentanyl 2ml Vial) 100 mcg STK-MED ONCE .ROUTE ; Start at 06:24; Stop 11/30/16 at 06:25; Status DC Succinylcholine Chloride (Anectine) 200 mg STK-MED ONCE .ROUTE ; Start 11/30/16 at 06:25; Stop 11/30/16 at 06:26; Status DC Glycopyrrolate (Robinul) 1 mg STK-MED ONCE .ROUTE ; Start 11/30/16 at 06:25; Stop 11/30/16 at 06:26; Status DC Neostigmine Methylsulfate 5 mg STK-MED ONCE .ROUTE ; Start 11/30/16 at 06:25; Stop 11/30/16 at 06:26; Status DC Rocuronium Palmetto 50 mg 50 mg STK-MED ONCE .ROUTE ; Start 11/30/16 at 06:25; Stop 11/30/16 at 06:26; Status DC Propofol (Diprivan) 20 ml @ As Directed STK-MED ONCE IV ; Start 11/30/16 at 06: 25; Stop 11/30/16 at 06:26; Status DC Dexamethasone Sodium Phosphate (Decadron) 20 mg STK-MED ONCE .ROUTE ; Start at 06:25; Stop 11/30/16 at 06:26; Status DC Lidocaine HCl 100 mg STK-MED ONCE .ROUTE ; Start 11/30/16 at 06:26; Stop at 06:27; Status DC Scopolamine 1 patch 1 patch PRN 1X PRN TD DIZZINESS Last administered on t 07:20; Start 11/30/16 at 06:45; Stop 11/30/16 at 13:00; Status DC Cefazolin Sodium/ Dextrose 50 ml @ As Directed STK-MED ONCE IV ; Start 11/30/16 at 06:41; Stop 11/30/16 at 06:42; Status DC Cefazolin Sodium/ Dextrose 50 ml @ 100 mls/hr 1X PREOP IV Last administered on 11/30/16t 07:21; Start 11/30/16 at 07:00; Stop 12/01/16 at 06:59; Status DC Cefazolin Sodium/ Dextrose (Ancef 2gm Premix) 50 ml @ 100 mls/hr 1X ONCE IV ; Start 11/30/16 at 07:00; Stop 11/30/16 at 07:29; Status DC Fentanyl Citrate (Fentanyl 2ml Vial) 100 mcg STK-MED ONCE .ROUTE ; Start at 07:27; Stop 11/30/16 at 07:28; Status DC Glycopyrrolate (Robinul) 1 mg STK-MED ONCE .ROUTE ; Start 11/30/16 at 07:49; Stop 11/30/16 at 07:50; Status DC Neostigmine Methylsulfate 5 mg STK-MED ONCE .ROUTE ; Start 11/30/16 at 07:49; Stop 11/30/16 at 07:50; Status DC Sodium Chloride 3 ml 3 ml QSHIFT PRN IV AFTER MEDS AND BLOOD DRAWS; Start 11/30 at 08:15 Lactated Ringer's (Iv Lactated Ringers) 1,000 ml @ 100 mls/hr Q10H IV Last administered on 11/30/16 08:05; Start 11/30/16 at 08:05 Acetaminophen/ Hydrocodone Bitart (Lortab 5/325) 1 tab PRN Q4HRS PRN PO MILD PAIN Last administered on 12/01/16 08:55; Start 11/30/16 at 08:15 Morphine Sulfate 1 mg PRN Q1HR PRN IV PAIN; Start 11/30/16 at 08:15 Senna/Docusate Sodium (Senna Plus) 1 tab BID PO Last administered on 12/01/16 08:54; Start 11/30/16 at 09:00 Ondansetron HCl (Zofran) 4 mg PRN Q6HRS PRN IV NAUESA, 1ST CHOICE; Start at 08:15 Acetaminophen (Tylenol) 325 mg PRN Q4HRS PRN PO PAIN/FEVER; Start 11/30/16 at 12:00 Acetaminophen/ Hydrocodone Bitart (Lortab 5/325) 1 tab PRN Q6HRS PRN PO PAIN; Start 11/30/16 at 12:00 Leflunomide (Arava) 20 mg DAILY PO Last administered on 12/01/16 08:54; Start 11/30/16 at 12:30 Levothyroxine Sodium (Synthroid) 150 mcg DAILY07 PO Last administered on 07:23; Start 11/30/16 at 12:30 Ondansetron HCl (Zofran Odt) 4 mg PRN Q8HRS PRN PO nausea; Start 11/30/16 at 12 :00 Polyethylene Glycol (miraLAX PACKET) 17 gm DAILY PO Last administered on 08:55; Start 11/30/16 at 12:30 Simvastatin (Zocor) 40 mg QHS PO Last administered on 11/30/16 20:52; Start at 21:00 Diclofenac Sodium (Voltaren) 50 mg BID PO Last administered on 12/01/16 08:54 ; Start 11/30/16 at 21:00 Non-Formulary Medication 1 tab QHS PO ; Start 11/30/16 at 21:00; Status UNV Pantoprazole Sodium (Protonix) 40 mg DAILYAC PO Last administered on 2/16/17at 08:54; Start 11/30/16 at 12:30 Active Scripts Active Zofran Odt (Ondansetron) 4 Mg Tab.rapdis 1 Tab SL Q8HRS Reported Miralax (Polyethylene Glycol 3350) 17 Gm Powd.pack 1 Pkt PO DAILY Benadryl (Diphenhydramine Hcl) 25 Mg Capsule 1 Cap PO QHS Multivitamins (Multivitamin) 1 Each Tablet Unknown Dose PO DAILY Melatonin 3 Mg Tablet 1 Tab PO QHS [tylenol pm] Unknown Dose Tramadol Hcl 50 Mg Tablet 1 Tab PO PRN Q6HRS Tylenol (Acetaminophen) 325 Mg Tablet 1 Tab PO PRN Q4HRS Hydrocodone-Apap 5-325 (Hydrocodone Bit/Acetaminophen) 1 Each Tablet 1 Tab PO PRN Q6HRS PRN Diclofenac Potassium 50 Mg Tablet 1 Tab PO BID Omeprazole 40 Mg Capsule.dr Unknown Dose PO DAILY Simvastatin 40 Mg Tablet Unknown Dose PO QHS Levothyroxine Sodium 150 Mcg Tablet Unknown Dose PO DAILY [vision formula] Unknown Dose Actemra (Tocilizumab) 400 Mg/20 Ml Vial Unknown Dose IV Arava (Leflunomide) 20 Mg Tablet Unknown Dose PO DAILY Vitals/I & O Vital Sign - Last 24 Hours 11/30/16 11/30/16 11/30/16 11/30/16 12:57 13:07 14:47 17:18 Temp 97.7 97.7 Pulse 71 67 Resp 20 18 B/P 122/72 100/65 Pulse Ox 96 93 96 96 O2 Delivery Nasal Cannula Nasal Cannula Nasal Cannula Nasal Cannula O2 Flow Rate 2.0 2.0 2.0 2.0 11/30/16 11/30/16 11/30/16 12/01/16 19:00 20:00 22:42 01:01 Temp 98.9 97.5 98.9 97.5 Pulse 75 76 Resp 17 18 20 B/P 112/64 116/71 Pulse Ox 92 95 O2 Delivery Nasal Cannula Nasal Cannula Nasal Cannula Room Air O2 Flow Rate 2.0 2.0 2.0 12/01/16 12/01/16 12/01/16 02:40 07:00 11:08 Temp 99.4 99.5 98.1 99.4 99.5 98.1 Pulse 70 72 65 Resp 17 18 18 B/P 111/71 138/83 116/77 Pulse Ox 94 94 97 O2 Delivery Nasal Cannula Nasal Cannula Nasal Cannula O2 Flow Rate 2.0 2.0 Intake and Output 11/30/16 11/30/16 12/01/16 15:00 23:00 07:00 Intake Total 1610 ml 740 ml Output Total 360 ml 300 ml Balance 1250 ml 740 ml -300 ml MARYCARMEN MENJIVAR MD Dec 01, 2016 12:18
--- NOTE | 2016-12-01 13:31 | PATHOLOGY ---
PATHOLOGY REPORT * * * * * * * * FINAL DIAGNOSIS: Segments of focal mesothelial-lined fibromembranous and fibroadipose tissue, right inguinal hernia repair: - Hernia sac showing focal chronic inflammation, fat necrosis, and fibrosis. (DALTONM:marie; d/t: 12/01/2016) REPORT ELECTRONICALLY SIGNED BY: Danny Dang M.D. DATE/TIME: 12/01/2016 13:30 * * * * * * * * GROSS PATHOLOGY: Received in formalin labeled "Ernestina Franklin, right inguinal hernia sac," are two segments of fibroadipose tissue measuring 5.0 x 3.4 x 1.2 cm in aggregate dimensions. No nodules or lesions are identified. Medication Administration Professional tissue is submitted in cassette A1. (KAH:LISANDRA:marie; 11/30/2016) INITIAL CPT CODE(S): A; 88590 Professional services performed [place] [facility] [place] [address] Technical services performed by [facility] at [address] [place] [address], [facility] [address] [address]. SPECIMEN(S) RECEIVED: A.Right hernia sac inguinal CLINICAL HISTORY: Right inguinal hernia PATIENT: ERNESTINA FRANKLIN /AGE: 907/10/1940 (Age: 76) PATIENT #: [id number] ALT CASE #: SPECIMEN COLLECTION DATE: 11/30/2016 SPECIMEN RECEIVED DATE: 11/30/2016 [facility] - [address] [place] [address] - PHONE: [phone] * * * END OF REPORT * * *
[2016-12-01 14:46] VITALS: BP 125/80
[2016-12-01 19:00] VITALS: BP 107/73
[2016-12-01] MEDS: SIMVASTATIN 40 MG TABLET. PO SCH (20:42)
[2016-12-01 23:00] VITALS: BP 131/83
[2016-12-02] MEDS: IV RINGERS,LACTATED 1000ML 1,000 ML IV SCH (00:05)
[2016-12-02] MEDS: LEVOTHYROXINE 150 MCG TABLET PO SCH ×2 (06:31→08:18)
[2016-12-02] MEDS: HYDROCODONE/APAP 5/325MG TABLET. PO PRN (06:35)
[2016-12-02 07:33] VITALS: BP 137/83
[2016-12-02] MEDS: SENNOSIDES/DOCUSATE 8.6/50MG TABLET. PO SCH (08:18)
[2016-12-02] MEDS: PANTOPRAZOLE 40 MG TABLET. PO SCH (08:18)
[2016-12-02] MEDS: LEFLUNOMIDE 10 MG TABLET. PO SCH (08:18)
[2016-12-02] MEDS: POLYETHYLENE GLYCOL 3350 17 GM PACKET. PO SCH (08:19)
[2016-12-02] MEDS: DICLOFENAC SODIUM 25 MG TABLET.DR PO SCH (08:19)
[2016-12-02] MEDS ORDERED: ZOLPIDEM 5 MG TABLET. PO PRN (09:30)
[2016-12-02] MEDS ORDERED: DIPHENHYDRAMINE HCL 25 MG CAPSULE PO PRN (09:30)
[2016-12-02] MEDS ORDERED: POTASSIUM CHLORIDE 20 MEQ TABLET.ER. PO ONE (09:30)
--- NOTE | 2016-12-02 10:35 | PDOC ---
LISA ORTEZ [employer]ING ENCASER 12/02/16 1035: SURGICAL PROGRESS NOTE Subjective tolerating diet feeling well + BM Vital Signs Vital Signs Date Time Temp Pulse Resp B/P Pulse Ox O2 Delivery O2 Flow Rate FiO2 12/02/16 08:00 Nasal Cannula 2.0 12/02/16 07:33 97.8 62 18 137/83 98 97.8 I&O Intake and Output 12/02/16 07:00 Intake Total 2180 ml Output Total 3150 ml Balance -970 ml Intake Oral 2180 ml Output Urine Total 3150 ml # Voids 4 General: Alert, Oriented X3, Cooperative, No acute distress Abdomen: Soft, Other (incision c/d/i, no erythema) Labs Laboratory Tests Test 12/01/16 04:20 White Blood Count 3.3x10^3/uL (4.0-11.0) Red Blood Count 3.52x10^6/uL (3.50-5.40) Hemoglobin 11.2g/dL (12.0-15.5) Hematocrit 32.8% (36.0-47.0) Mean Corpuscular Volume 93fL (79-100) Mean Corpuscular Hemoglobin 32pg (25-35) Mean Corpuscular Hemoglobin Concent 34g/dL (31-37) Red Cell Distribution Width 13.3% (11.5-14.5) Platelet Count 134x10^3/uL (140-400) Neutrophils (%) (Auto) 42% (31-73) Lymphocytes (%) (Auto) 37% (24-48) Monocytes (%) (Auto) 17% (0-9) Eosinophils (%) (Auto) 4% (0-3) Basophils (%) (Auto) 0% (0-3) Neutrophils # (Auto) 1.4x10^3uL (1.8-7.7) Lymphocytes # (Auto) 1.2x10^3/uL (1.0-4.8) Monocytes # (Auto) 0.6x10^3/uL (0.0-1.1) Eosinophils # (Auto) 0.1x10^3/uL (0.0-0.7) Basophils # (Auto) 0.0x10^3/uL (0.0-0.2) Sodium Level 140mmol/L (136-145) Potassium Level 3.4mmol/L (3.5-5.1) Chloride Level 106mmol/L (98-107) Carbon Dioxide Level 28mmol/L (21-32) Anion Gap 6 (6-14) Blood Urea Nitrogen 16mg/dL (7-20) Creatinine 0.8mg/dL (0.6-1.0) Estimated GFR (Cockcroft-Gault) 69.6 Glucose Level 88mg/dL (70-99) Calcium Level 8.8mg/dL (8.5-10.1) Problem List Problems Medical Problems: (1) Incarcerated right inguinal hernia Status: Acute (2) Small bowel obstruction Status: Acute Assessment/Plan stable, dc home FU 2 weeks Problems: SHADI BURRIS MD 12/02/16 1141: SURGICAL PROGRESS NOTE Assessment/Plan Agree Problems: LISA ORTEZ [employer] E[employer]ER Dec 02, 2016 10:35 SHADI BURRIS MD Dec 02, 2016 11:41
[2016-12-02 11:21] VITALS: BP 133/83
--- NOTE | 2016-12-02 11:35 | PDOC3 ---
Discharge Summary Visit Information Date of Admission: Nov 30, 2016 Date of Discharge: Dec 02, 2016 Admitting Diagnosis Comment: incarcerated hernia s/p emergent sx (11/30) POD # 2 rheum arthritis on Arava hypothyoidism on synthroid htn, Dyslipidemia obese, BMI 30.9 Final Diagnosis Problems Medical Problems: (1) Incarcerated right inguinal hernia Status: Acute (2) Small bowel obstruction Status: Acute Brief Hospital Course Allergies Allergies Coded Allergies Type Severity Reaction Last Updated Verified oxaprozin Allergy Severe Anaphylaxis 11/30/16 No sulfamethazine Allergy Intermediate 11/30/16 Yes prednisone Adverse Reaction Intermediate Anxiety 11/30/16 No Vital Signs Vital Signs Date Time Temp Pulse Resp B/P Pulse Ox O2 Delivery O2 Flow Rate FiO2 12/02/16 11:21 98.0 64 19 133/83 97 Nasal Cannula 2.0 98.0 Lab Results Laboratory Tests Test 12/01/16 04:20 White Blood Count 3.3x10^3/uL (4.0-11.0) Red Blood Count 3.52x10^6/uL (3.50-5.40) Hemoglobin 11.2g/dL (12.0-15.5) Hematocrit 32.8% (36.0-47.0) Mean Corpuscular Volume 93fL (79-100) Mean Corpuscular Hemoglobin 32pg (25-35) Mean Corpuscular Hemoglobin Concent 34g/dL (31-37) Red Cell Distribution Width 13.3% (11.5-14.5) Platelet Count 134x10^3/uL (140-400) Neutrophils (%) (Auto) 42% (31-73) Lymphocytes (%) (Auto) 37% (24-48) Monocytes (%) (Auto) 17% (0-9) Eosinophils (%) (Auto) 4% (0-3) Basophils (%) (Auto) 0% (0-3) Neutrophils # (Auto) 1.4x10^3uL (1.8-7.7) Lymphocytes # (Auto) 1.2x10^3/uL (1.0-4.8) Monocytes # (Auto) 0.6x10^3/uL (0.0-1.1) Eosinophils # (Auto) 0.1x10^3/uL (0.0-0.7) Basophils # (Auto) 0.0x10^3/uL (0.0-0.2) Sodium Level 140mmol/L (136-145) Potassium Level 3.4mmol/L (3.5-5.1) Chloride Level 106mmol/L (98-107) Carbon Dioxide Level 28mmol/L (21-32) Anion Gap 6 (6-14) Blood Urea Nitrogen 16mg/dL (7-20) Creatinine 0.8mg/dL (0.6-1.0) Estimated GFR (Cockcroft-Gault) 69.6 Glucose Level 88mg/dL (70-99) Calcium Level 8.8mg/dL (8.5-10.1) Brief Hospital Course Ms. Sheridan is a 76 old [sex] who presented with [ ] female with RA on biologics, admitted for acute abd pain, found to have incarcerated hernia with partial sbo, underwent stat sx, doing well post op ,. Needed only 2 days post op in house Will go home with 2 week ff up GS. No pain meds needed, has many at home for RA Pt seen and examiend Dw Proc: emergent sx for incarcerated hernia Consults: Dispo: home Discharge Information Condition at Discharge: Improved, Stable Follow Up: Weeks (2 weeks ) Disposition/Orders: D/C to Home Scheduled Acetaminophen (Tylenol) 1 TAB PO PRN Q4HRS (Reported) Diclofenac Potassium (Diclofenac Potassium) 1 TAB PO BID (Reported) Diphenhydramine Hcl (Benadryl) 1 CAP PO QHS (Reported) Leflunomide (Arava) Unknown Dose PO DAILY (Reported) Levothyroxine Sodium (Levothyroxine Sodium) Unknown Dose PO DAILY (Reported) Melatonin (Melatonin) 1 TAB PO QHS (Reported) Multivitamin (Multivitamins) Unknown Dose PO DAILY (Reported) Omeprazole (Omeprazole) Unknown Dose PO DAILY (Reported) Ondansetron (Zofran Odt) 1 TAB SL Q8HRS Polyethylene Glycol 3350 (Miralax) 1 PKT PO DAILY (Reported) Simvastatin (Simvastatin) Unknown Dose PO QHS (Reported) Tramadol Hcl (Tramadol Hcl) 1 TAB PO PRN Q6HRS (Reported) Scheduled PRN Hydrocodone Bit/Acetaminophen (Hydrocodone-Apap 5-325 ) 1 TAB PO PRN Q6HRS PRN PRN PAIN (Reported) Miscellaneous Medications ([vision formula]) Unknown Dose (Reported) ([tylenol pm]) Unknown Dose (Reported) Tocilizumab (Actemra) Unknown Dose IV (Reported) MARYCARMEN MENJIVAR MD Dec 02, 2016 11:35
== END 2016-12-02 12:15 | disposition home or self-care (01) | DRG 352 ==
LOC: ER 22:19 → 5 SOUTH 11-30 02:47
PROVIDERS: ADMIT Internal Medicine; ATTEND Internal Medicine
PROC: 0DH67UZ Insertion of Feeding Device into Stomach, Via Natural or Artificial Opening (ICD-10-PCS; 2016-11-30)
PROC: 0YU50JZ Supplement Right Inguinal Region with Synthetic Substitute, Open Approach (ICD-10-PCS; principal; 2016-11-30 06:30)
DX: K40.30 Unilateral inguinal hernia, with obstruction, without gangrene, not specified as recurrent (principal); I10 Essential (primary) hypertension; E78.5 Hyperlipidemia, unspecified; M06.9 Rheumatoid arthritis, unspecified; E03.9 Hypothyroidism, unspecified; E66.9 Obesity, unspecified; E78.00 Pure hypercholesterolemia, unspecified; K21.9 Gastro-esophageal reflux disease without esophagitis; M81.0 Age-related osteoporosis without current pathological fracture; Z96.659 Presence of unspecified artificial knee joint; M19.90 Unspecified osteoarthritis, unspecified site; G56.03 Carpal tunnel syndrome, bilateral upper limbs; Z68.30 Body mass index [BMI] 30.0-30.9, adult; Z83.3 Family history of diabetes mellitus; Z98.1 Arthrodesis status; Z79.899 Other long term (current) drug therapy; Z88.6 Allergy status to analgesic agent; Z88.8 Allergy status to other drugs, medicaments and biological substances
CPT/HCPCS: 36415; 74000; 74020; 74177; 80048; 80053; 81001; 83605; 83690; 85027; 87086; 88302; 96361; 96374; 96375; 96376; C1781; J0330; J0690; J1100; J2250; J2270; J2405; J2704; J2710; J3010; J3490; J7030; J7120; Q9967; 99285-25